=== PATIENT | female | born 1995 | race African-American/Black ===

== ENCOUNTER 2020-10-05 00:34 | Emergency (ER) | payer SELFPAY ==
[~2020-10-05] VITALS: Ht 172.7 cm; Wt 70.8 kg
[2020-10-05 00:45] VITALS: BP 122/73
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
[2020-10-05] MEDS ORDERED: IBUPROFEN600 M1 ORAL (02:10)
[2020-10-05] MEDS ORDERED: NORCO 5-325 TA1 EAC1 ORAL (02:10)
[2020-10-05] MEDS ORDERED: Tetanus/Diptheria/Pertussis IM ONE (02:15)
[2020-10-05] MEDS ORDERED: Morphine Sulfate 2mg/ml Inj(IV/IM USE ONLY) IM ONE (02:15)
[2020-10-05 02:20] VITALS: BP 120/70
--- NOTE | 2020-10-05 02:20 | NUR ---
ER DISCHARGE NOTE: Patient is cleared to be discharged per ERMD, pt is aox4, on room air, with stable vital signs. pt was given dc and prescription instructions, pt was able to verbalize understanding, pt id band removed. pt is able to ambulate with steady gait. pt took all belongings.pt is being picked up by friend
== END 2020-10-05 02:20 | disposition home or self-care (01) ==
LOC: EMR 02:05
DX: T25.221A Burn of second degree of right foot, initial encounter (principal); X12.XXXA Contact with other hot fluids, initial encounter; Y93.9 Activity, unspecified; Y92.9 Unspecified place or not applicable
CPT/HCPCS: 90471; 90715; 96372; 99283; J2270